=== PATIENT | female | born 1970 | race Caucasian/White ===

== ENCOUNTER 2018-02-08 11:43 | Emergency (ER) | payer OTHER ==
[~2018-02-08] VITALS: Ht 162.6 cm; Wt 81.3 kg
[2018-02-08 11:46] VITALS: BP 150/84
[2018-02-08] MEDS ORDERED: BACITRACIN ZINC OINT 500U/GM, 0.9 GM ONE (13:15)
== END 2018-02-08 13:29 | disposition home or self-care (01) ==
LOC: ED 13:25
DX: S61.230A Puncture wound without foreign body of right index finger without damage to nail, initial encounter (principal); W46.0XXA Contact with hypodermic needle, initial encounter; Y93.89 Activity, other specified; Y92.89 Other specified places as the place of occurrence of the external cause; Y99.0 Civilian activity done for income or pay
CPT/HCPCS: 36415; 86705; 86706; 86803; 87340; 87806; 99284; G0475

== ENCOUNTER 2020-01-07 13:24 | Outpatient (CLI) | payer OTHER | END 2020-01-07 23:59 | disposition home or self-care (01) | LOC: CFH 13:24 → EDSTATUS 13:45 → CFH 23:59 | PROVIDERS: ATTEND Nurse Practitioner Family | DX: Z12.31 Encounter for screening mammogram for malignant neoplasm of breast (principal); E04.9 Nontoxic goiter, unspecified; E05.00 Thyrotoxicosis with diffuse goiter without thyrotoxic crisis or storm | CPT/HCPCS: 76536; 77067 ==

== ENCOUNTER → 2020-02-06 | Outpatient (CLI) | payer OTHER | END | disposition home or self-care (01) | LOC: CFH 14:41 | PROVIDERS: ATTEND Podiatrist Foot & Ankle Surgery | DX: M65.871 Other synovitis and tenosynovitis, right ankle and foot (principal) ==

== ENCOUNTER → 2020-03-10 | Outpatient (CLI) | payer OTHER | END | disposition home or self-care (01) | LOC: CFH 12:59 | PROVIDERS: ATTEND Nurse Practitioner Family | DX: R92.2 Inconclusive mammogram (principal); R92.8 Other abnormal and inconclusive findings on diagnostic imaging of breast | CPT/HCPCS: 76641 ==

== ENCOUNTER 2020-12-27 06:02 | Outpatient (CLI) | payer OTHER | END 2020-12-27 23:59 | disposition home or self-care (01) | LOC: LAB 06:02 | PROVIDERS: ATTEND Internal Medicine Endocrinology, Diabetes & Metabolism | DX: R53.83 Other fatigue (principal); E55.9 Vitamin D deficiency, unspecified; R51.9 Headache, unspecified; E03.9 Hypothyroidism, unspecified; E88.9 Metabolic disorder, unspecified; Z79.899 Other long term (current) drug therapy | CPT/HCPCS: 36415; 80053; 80061; 82306; 82310; 82330; 82570; 82607; 82652; 82670; 82746; 83001; 83002; 83970; 84100; 84105; 84133; 84300; 84436; 84443; 84481; 84550 ==